=== PATIENT | female | born 1985 | race Caucasian/White ===

== ENCOUNTER 2017-11-02 22:45 | Emergency (ER) | payer OTHER, MEDICARE ==
[~2017-11-02 22:45] MED LIST: ALPRAZOLAM1 M2 PO; BUPROPION XL300 M1 PO; FLUTICASONE PRO16 GM NASB; GABAPENTIN300 M2 PO; GABAPENTIN600 M1 PO; HYDROXYZINE HCL50 M1 PO; PANTOPRAZOLE SO40 M1 PO; PERCOCET 5-3251 EACH PO; PREDNISONE10 M2 PO; SEASONIQUE 0.11 EACH PO; TRAZODONE HCL100 M1 PO
--- NOTE | 2017-11-03 01:21 | ED GENERAL ADULT ---
History of Present Illness General Chief Complaint: Lower Extremity Problems Stated Complaint: PT HAS PAIN IN THE BACK OF LT LEG Source: patient, old records, friend Exam Limitations: no limitations Vital Signs & Intake/Output Vital Signs & Intake/Output Vital Signs Date Time Temp Pulse Resp B/P B/P Pulse O2 O2 Flow FiO2 Mean Ox Delivery Rate 11/03 0118 Room Air 11/03 0025 96.9 87 18 105/56 96 Room Air Allergies Coded Allergies: No Known Allergies (03/03/17) Reconcile Medications Alprazolam 1 MG TABLET 1 TAB PO BIDP PRN ANXIETY (Reported) Bupropion HCl (Bupropion XL) 300 MG TAB.ER.24H 1 TAB PO QAM MENTAL HEALTH ( Reported) Fluticasone Propionate 50 MCG/ACTUATION SPRAY.SUSP 2 SPRAY NASB DAILY ALLERGIES (Reported) Gabapentin 300 MG CAPSULE 1 CAP PO TID NEUROPATHY (Reported) Gabapentin 600 MG TABLET 1 TAB PO TID neuropathy Hydroxyzine Hydrochloride (Atarax) 50 MG TAB 1 TAB PO TID PRN ITCHING L-Norgest/E.estradion-E.estrad (Seasonique 0.15-0.03-0.01 Tab) 0.15 MG-30 MCG ( 84)/10 MCG (7) TBDSPK.[id number] 1 TAB PO DAILY CONTROL (Reported) Oxycodone HCl/Acetaminophen (Percocet 5-325 MG Tablet) 5 MG-325 MG TABLET 1 TAB PO 4 TIMES/DAY PRN PAIN Pantoprazole Sodium 40 MG TABLET.DR 1 TAB PO DAILY ACID REFLUX (Reported) Prednisone 10 MG TABLET 1 DOSE PO ONCE DAILY RASH 6 TABS X 3 DAYS, 5 TABS X 3 DAYS, 4X3 DAYS, 3X 3 DAYS, 2X 3 DAYS 1 X 3 DAYS Tramadol HCl (Ultram) 50 MG TABLET 1-2 TAB PO Q6P PRN severe pain Trazodone HCl 100 MG TABLET 1 TAB PO QPM MENTAL HEALTH (Reported) Triage Note: PT TO TRIAGE C/O PAIN BEHIND L KNEE, +SWELLING, NO REDNESS. PT DENIES ANY INJURY, LONG TRIPS, SITTING FOR LONG PERIODS OF TIME. PT STOPPED ORAL CONTROL PILLS 1 MONTH AGO. DENIES CP/SOB. PT AMBULATED TO TRIAGE WITH STEADY GAIT. Triage Nurses Notes Reviewed? yes Onset: Morning Duration: hour(s):, constant, continues in ED Timing: recent history Severity: moderate Modifying Factors: Worsens With: other (palpation). LMP (ages 10-50): unknown : No Patient currently breastfeeds: No HPI: 1 day prior to a patient admission the patient complains of constant moderate sharp left posterior thigh pain about a varicose vein. She denies fever chills nausea vomiting diarrhea abdominal pain chest pain shortness breath headache dysuria rash bleeding prolonged immobilization surgery AT this. She is currently being treated with cefpodoxime for lung infection. Past History Travel History Traveled to [place] past 21 day No Medical History Any Pertinent Medical History? see below for history Neurological: NONE EENT: NONE Cardiovascular: NONE Respiratory: BRONCHIECTASIS Gastrointestinal: ulcerative colitis, SBO UMBILICAL HERNIA Hepatic: NONE Renal: NONE Musculoskeletal: NONE Psychiatric: NONE Endocrine: NONE Blood Disorders: NONE Cancer(s): NONE Surgical History Surgical History: SBO, LARGE INTESTINE REMOVAL, MULTIPLE ABDOMINAL SURGERIES, Psychosocial History What is your primary language German Tobacco Use: Current Not Daily Family History Hx Contributory? No Review of Systems Review of Systems Constitutional: Reports: no symptoms. EENTM: Reports: no symptoms. Respiratory: Reports: no symptoms. Cardiovascular: Reports: no symptoms. GI: Reports: no symptoms. Genitourinary: Reports: no symptoms. Musculoskeletal: Reports: no symptoms. Skin: Reports: no symptoms. Neurological/Psychological: Reports: no symptoms. Hematologic/Endocrine: Reports: no symptoms. Immunologic/Allergic: Reports: see HPI. All Other Systems: Reviewed and Negative Physical Exam Physical Exam General Appearance: well developed/nourished, alert, awake, anxious, mild distress Head: atraumatic, normal appearance Eyes: Bilateral: normal appearance, PERRL, EOMI. Ears, Nose, Throat: normal pharynx, normal ENT inspection, hearing grossly normal, moist mucus membranes Neck: normal inspection, supple, full range of motion, no midline tenderness Respiratory: normal breath sounds, chest non-tender, no respiratory distress, quiet respiration, lungs clear Cardiovascular: regular rate/rhythm, normal peripheral pulses, norml femoral pulses equa Peripheral Pulses: 4+ carotid (R), 4+ carotid (L) Gastrointestinal: normal bowel sounds, soft, non-tender, no organomegaly Back: normal inspection, normal range of motion Extremities: normal capillary refill, tender varicose vein left posterior medial thigh Neurologic/Psych: no motor/sensory deficits, awake, alert, normal gait, normal mood/affect, 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 Skin: intact, normal color, warm/dry Lymphatic: no anterior cervical jb Core Measures ACS in differential dx? No CVA/TIA Diagnosis: No Sepsis Present: No Sepsis Focused Exam Completed? No Progress Differential Diagnoses I considered the following diagnoses in my evaluation of the patient: DVT superficial thrombophlebitis and varicose vein Plan of Care: Orders Procedure Date/time Status PROTHROMBIN TIME 11/03 118 Complete D-DIMER 11/03 118 Complete COMPREHENSIVE METABOLIC PANEL 11/03 118 Complete CBC WITHOUT DIFFERENTIAL 11/03 118 Complete Laboratory Tests 11/03/17 0125: Anion Gap 10, Estimated GFR > 60, BUN/Creatinine Ratio 13.0, Glucose 92, Calcium 9.3, Total Bilirubin 0.2, AST 15, ALT 16, Alkaline Phosphatase 99, Total Protein 6.7, Albumin 3.6, Globulin 3.1, Albumin/Globulin Ratio 1.2, PT 11.7, INR 1.07, D -Dimer High Sensitivty < 200, CBC w Diff NO MAN DIFF REQ, RBC 4.41, MCV 88.9, MCH 30.1, MCHC 33.8, RDW 12.6, MPV 9.2, Gran % 39.5 L, Lymphocytes % 45.4, Monocytes % 8.1, Eosinophils % 6.6 H, Basophils % 0.4, Absolute Granulocytes 2.9, Absolute Lymphocytes 3.3, Absolute Monocytes 0.6, Absolute Eosinophils 0.5, Absolute Basophils 0 Initial ED EKG: none Departure Departure Time of Disposition: 250 Disposition: HOME OR SELF CARE Condition: Stable Clinical Impression Primary Impression: Superficial thrombophlebitis Referrals: Andriy Valle MD Call for vascular surgery follow up Reuben LINCOLN,Armand Jaime (PCP/Family) Additional Instructions: Continue cefpodoxime Departure Forms: Customer Survey General Discharge Information Prescriptions: Current Visit Scripts Tramadol HCl (Ultram) 1-2 TAB PO Q6P PRN severe pain #30 TAB Critical Care Note Critical Care Note Critical Care Time: non-applicable
[2017-11-03 01:32] LABS: ABSOLUTE BASOPHIL COUNT 0 /CUMM (0.0-0.2); ABSOLUTE EOSINOPHIL COUNT 0.5 /CUMM (0.0-0.7); ABSOLUTE GRANULOCYTE CT 2.9 /CUMM (1.4-6.5); ABSOLUTE LYMPH COUNT 3.3 /CUMM (1.2-3.4); ABSOLUTE MONOCYTE COUNT 0.6 /CUMM (0.10-0.60); BASOPHIL % 0.4 % (0.0-2.0); EOSINOPHIL % 6.6 % (0-5); HEMATOCRIT 39.2 % (37-47); MEAN CORPUSCULAR HGB 30.1 PG (27.0-31.0); MEAN CORPUSCULAR HGB CONC 33.8 G/DL (33.0-37.0); MEAN CORPUSCULAR VOLUME 88.9 FL (81.0-99.0); MEAN PLATELET VOLUME 9.2 FL (7.4-10.4); PLATELET COUNT 233 /CUMM (130-400); RBC DISTRIBUTION WIDTH 12.6 % (11.5-14.5); RED BLOOD CELL CT 4.41 /CUMM (4.20-5.40); WHITE BLOOD CELL COUNT 7.4 /CUMM (4.8-10.8)
[2017-11-03 01:33] LABS: GRANULOCYTE % 39.5 % (42.2-75.2)
[2017-11-03 01:41] LABS: PT 11.7 SEC (9.4-12.5)
[2017-11-03 02:50] VITALS: BP 100/55
[2017-11-03] MEDS ORDERED: ULTRAM50 M1 PO (02:54)
== END 2017-11-03 03:05 ==
LOC: ERH 22:45
PROVIDERS: Emergency Medicine
DX: I80.02 Phlebitis and thrombophlebitis of superficial vessels of left lower extremity (principal)